=== PATIENT | male | born 1955 | race Caucasian/White ===

== ENCOUNTER 2017-12-01 17:55 | Emergency (ER) | payer OTHER ==
[2017-12-01 18:26] LABS: Bilirubin Negative (Negative); Blood, Urine Large (Negative); Clarity Cloudy (Clear); Glucose, Urine (Dipstick) Negative (Negative); Leukocyte Negative (Negative); Nitrite Negative (Negative); Protein, Urine (Dipstick) 30 mg/dL (Neg-Trace); Specific Gravity, Urine 1.025 (1.005-1.030); Urobilinogen 0.2 mg/dL (0.2-1.0)
[2017-12-01 18:51] LABS: Bacteria/HPF None Seen HPF (None Seen); RBC/HPF GREATER THAN 50-TNTC HPF (0-3); Squamous Epithelial 0-3 HPF (0-3); WBC/HPF 0-3 HPF (0-3)
[2017-12-01 19:22] LABS: #Basophils 0.1 thou/uL (0.0-0.2); #Eosinphils 0.2 thou/uL (0.0-0.7); #Lymphocytes 2.9 thou/uL (1.20-3.40); #Monocytes 0.8 thou/uL (0.11-0.59); #Neutrophils 3.3 thou/uL (1.40-6.50); %Basophils 1.3 % (0.0-1.0); %Eosinophils 2.3 % (0.0-10.0); %Lymphocytes 40.1 % (21.0-51.0); %Monocytes 11.3 % (0.0-10.0); Hemoglobin 14.2 g/dL (14.0-18.0); Mean Corpuscular HGB CONC 34.5 g/dL (32.0-36.0); Mean Corpuscular Hemoglobin 30.4 pg (27.0-31.0); Mean Corpuscular Volume 88.2 fl (80.0-94.0); Mean Platelet Volume 9.1 fL (7.4-10.4); Platelet Count 178 thou/uL (130-400); RBC Distribution Width 11.7 % (11.5-14.5); Red Blood Cell (RBC) Count 4.66 mill/uL (4.70-6.10); White Blood Cell (WBC) Count 7.2 thou/uL (4.8-10.8)
[2017-12-01 19:35] LABS: INR-International Normal Ratio 1.1; Prothrombin Time 14.5 SEC (12.0-14.7)
[2017-12-01 19:55] LABS: ALT (SGPT) 22 U/L (8-55); AST (SGOT) 22 U/L (5-34); Albumin 4.1 g/dL (3.4-4.8); Alkaline Phosphatase 49 U/L (40-150); Anion Gap 14 mmol/L (10-20); BUN (Urea Nitrogen) 21 mg/dL (8.4-25.7); Bilirubin, Total 0.4 mg/dL (0.2-1.2); Calc. Creatinine Clearance 0 mL/min (70-130); Calcium 9.5 mg/dL (7.8-10.44); Carbon Dioxide 27 mmol/L (23-31); Chloride 108 mmol/L (98-107); Estimated GFR-MDRD 70; Globulin 2.6 g/dL (2.4-3.5); Glucose 100 mg/dL (80-115); Potassium 3.8 mmol/L (3.5-5.1); Protein, Total 6.7 g/dL (5.8-8.1); Sodium 145 mmol/L (136-145)
[2017-12-01] MEDS ORDERED: Sodium Chloride 0.9% 500 ML ONE (20:41)
--- NOTE | 2017-12-01 21:19 | CT ---
CT ABDOMEN AND PELVIS WITH CONTRAST: 12/01/16 Multiple axial tomograms obtained through the abdomen and pelvis with IV enhancement. FINDINGS: Suprapubic pain with hematuria. Lung bases are clear. There are numerous small low density lesions seen throughout the liver which are too numerous to coun t. Densities would suggest numerous small hepatic cysts. Spleen and pancreas appear unremarkable. Adr enal glands and kidneys are unremarkable. No hydronephrosis. No urinary tract calculus. There is a subtle density seen in the floor of the bladder to the right of midline in a mildly disten ded bladder. This density measures approximately 1.5 cm. It is concerning for mucosal lesion given th e history of hematuria. Cystoscopy is recommended. Aorta is normal caliber. Bowel loops are unremarkable. IMPRESSION: 1. Faint density in the floor of the bladder to the right of midline, worrisome for mucosal lesi on. Given the history of hematuria, Recommend cystoscopy to further evaluate. 2. Numerous low density lesions throughout the liver, probably representing numerous hepatic cys ts. Recommend correlation with liver function tests to rule out the possibility of cystic metastasis. POS: [facility]
== END 2017-12-01 21:34 | disposition home or self-care (01) ==
LOC: NAV ERS 17:55
DX: R31.9 Hematuria, unspecified (principal); K76.89 Other specified diseases of liver; I10 Essential (primary) hypertension; I25.10 Atherosclerotic heart disease of native coronary artery without angina pectoris; J45.909 Unspecified asthma, uncomplicated; F17.210 Nicotine dependence, cigarettes, uncomplicated
CPT/HCPCS: 74177; 80053; 81003; 81015; 85025; 85610; J7050